=== PATIENT | male | born 1975 | race Caucasian/White ===

== ENCOUNTER 2018-07-31 20:13 | Emergency (ER) | payer OTHER ==
[2018-07-31] MEDS: METOCLOPRAMIDE 10 MG INJ IV (21:08)
[2018-07-31] MEDS: KETOROLAC 30 MG INJ IV (21:08)
[2018-07-31] MEDS: SOD CHLORIDE 0.9% 1,000 ML IV (21:08)
== END 2018-07-31 22:25 | disposition home or self-care (01) ==
LOC: FTE 20:13
DX: R51 Headache (principal)
CPT/HCPCS: 70450; 96361; 96374; 96375; 99285-25